=== PATIENT | male | born 1965 | race Caucasian/White ===

== ENCOUNTER 2023-12-23 12:20 | Outpatient (AMB) | payer BC, SELFPAY ==
--- NOTE | 2023-12-23 12:24 | AM.OFFWIN_ITS ---
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 Pt fell at home two days ago. Denies hitting head and denies LOC. Reports pain has been getting better - rates at 5/10 today. Review of Systems Const All systems reviewed & are unremarkable except as noted in HPI and below Physical Exam Vital Signs: Last Vital Signs Pulse 83 12/23/23 12:29 BP 136/82 12/23/23 12:29 Pulse Ox 95 12/23/23 12:29 Oxygen Delivery Method Room Air 12/23/23 12:29 BMI result Body Mass Index 29.0 Const General: no acute distress; No comfortable Nutritional Appearance: well nourished Orientation/consciousness: patient oriented x3 Chest Other: Large bruise right sided lower chest wall with hematoma. Very painful with palpation. Chest palpation & inspection: no crepitus, localized rib tenderness with anteroposterior compression and tenderness rib (right sided ) Chest/axillae images: 2 1. Large bruise right sided lower chest wall with hematoma. Very painful with palpation. Resp Effort & Inspection: normal respiratory effort and able to speak in complete sentences Auscultation: clear to auscultation bilaterally, no crackles, no rales, no rhonchi and no wheezes Cardio Rate: regular rate Rhythm: regular rhythm Neuro General: patient oriented x3 Assessment & Plan Assessment & Plan (1) Chest wall contusion: Code(s): S20.219A - Contusion of unspecified front wall of thorax, initial encounter Qualifiers: Encounter type: initial encounter Laterality: right Qualified Code(s): S20.211A - Contusion of right front wall of thorax, initial encounter Plan: - Acetaminophen for pain relief - Chest Xray - Rest Orders: Orders 2 XR ribs RT min 3V w CXR1V Today S20.211A - Contusion of right front wall of thorax, initial encounter Coding Level of Care Code New Pt Level 4 (17833) Diagnoses Contusion of right chest wall, initial encounter S20.211A Encounter type: initial encounter Laterality: right Time Spent (min) 20
[2023-12-23 12:29] VITALS: BP 136/82; PULSE 83; O2SAT 95; BMI 29.0
== END 2023-12-23 13:27 | disposition home or self-care (01) ==
PROVIDERS: Visit Provider Nurse Practitioner Family
DX: S20.211A Contusion of right front wall of thorax, initial encounter (principal)
CPT/HCPCS: 99204

== ENCOUNTER 2023-12-23 12:38 | Outpatient (REF) | payer BC, SELFPAY ==
--- NOTE | ~2023-12-23 | XR_ITS ---
EXAMINATION: XR RIBS, RIGHT CLINICAL INFORMATION: Right rib cage pain COMPARISON: None available. TECHNIQUE: 3 views of the right ribs and chest PA view were obtained. FINDINGS: Lungs are clear cardiomediastinal silhouette is normal. There is blunting of right costophrenic angle There is fracture of ribs #11 and 10 along the posterior axillary line XR/XR ribs RT min 3V w CXR1V IMPRESSION: Fracture of ribs #10 and 11 on the right
== END 2023-12-23 12:39 | disposition home or self-care (01) ==
LOC: HO.HMGCX 12:38
PROVIDERS: Visit Provider Nurse Practitioner Family
DX: S20.211A Contusion of right front wall of thorax, initial encounter (principal); X58.XXXA Exposure to other specified factors, initial encounter; Y93.9 Activity, unspecified; Y92.9 Unspecified place or not applicable; Y99.9 Unspecified external cause status
CPT/HCPCS: 71101